=== PATIENT | male | born 1965 | race African-American/Black ===

== ENCOUNTER 2016-12-01 16:44 | Emergency (ER) | payer OTHER ==
[~2016-12-01] VITALS: Ht 157.5 cm; Wt 61.2 kg
[2016-12-01 17:37] VITALS: BP 152/97
== END 2016-12-01 17:38 | disposition home or self-care (01) ==
LOC: ER 16:50
DX: S00.81XA Abrasion of other part of head, initial encounter (principal); F20.9 Schizophrenia, unspecified; R21 Rash and other nonspecific skin eruption; Z59.0 Homelessness; X58.XXXA Exposure to other specified factors, initial encounter; Y93.89 Activity, other specified; Y92.89 Other specified places as the place of occurrence of the external cause; Y99.9 Unspecified external cause status
CPT/HCPCS: 99283; A4606; Z7610

== ENCOUNTER 2017-10-12 23:37 | Emergency (ER) | payer OTHER ==
[~2017-10-12] VITALS: Ht 162.6 cm; Wt 73.5 kg
[2017-10-12 23:41] VITALS: BP 140/80
[2017-10-13] MEDS ORDERED: HALOPERIDOL 1 MG TABLET PO ONE (04:30)
[2017-10-13] MEDS ORDERED: BENZTROPINE MESYLATE (1 MG) 1 MG TABLET PO ONE (04:30)
== END 2017-10-13 04:57 | disposition home or self-care (01) ==
LOC: ER 23:38
DX: F20.9 Schizophrenia, unspecified (principal); K59.09 Other constipation
CPT/HCPCS: 99283; A4606; Z7610

== ENCOUNTER 2018-12-18 13:06 | Emergency (ER) | payer SELFPAY ==
[~2018-12-18] VITALS: Ht 162.6 cm; Wt 73.5 kg
[2018-12-18 13:06] VITALS: BP 156/93
[2018-12-18] MEDS ORDERED: TDAP [DIPH/PERTUSSIS/TET] 0.5 ML VIAL IM ONE ×2 (14:00→14:07)
--- NOTE | 2018-12-18 14:43 | NUR ---
HOMELESS RESOURCES PROVIDED TO PT; REFUSES AT THIS TIME. GIVEN FOOD AND TRANSPORTATION.
--- NOTE | 2018-12-18 14:49 | NUR ---
Social service consult requested by MARCIAL Olguin for homelessness. Pt. is a 53 year old male who came into the ED complaining of head and hand pain. Pt. fell three weeks ago. MARCIN and CONOR Mckeon met with pt. bedside to discuss discharge plan. Pt. is alert and oriented x 3. Pt. appears disheveled and his t-shirt is ripped. Pt. has abrasions all over his face from his fall three weeks ago. Pt. is ambulatory with a steady gait. Pt. kept telling MARCIN, " I'm ready to go, I am going to [facility]." MARCIN offered pt. [place] halfway placement list and other homeless resources that pt. accepted, however left them behind and didn't take them with him. Pt. was provided with a warm meal. Pt. was given a pair of sweatpants, T-shirt, jacket and a baseball cap. Pt. had his own pair of shoes. Pt. was also given [employer] for transportation. MARCIN attempted to complete a biopsychosocial, however, pt. appeared to be in a hurry to leave and didn't cooperate and stated again, " I need to go." Homeless Patient Waiver Form was signed by the pt. and placed in pt's chart. No other social service needs are requested at this time.
== END 2018-12-18 14:46 | disposition home or self-care (01) ==
LOC: ER 13:06
DX: S60.414A Abrasion of right ring finger, initial encounter (principal); F10.10 Alcohol abuse, uncomplicated; F17.200 Nicotine dependence, unspecified, uncomplicated; Y90.9 Presence of alcohol in blood, level not specified; Z59.0 Homelessness; W01.0XXA Fall on same level from slipping, tripping and stumbling without subsequent striking against object, initial encounter; Y93.89 Activity, other specified; Y92.89 Other specified places as the place of occurrence of the external cause; Y99.8 Other external cause status
CPT/HCPCS: 90471; 90715; 99283; A4606